=== PATIENT | male | born 1995 | race Two or more races ===

== ENCOUNTER → 2017-09-08 | Outpatient (CLI) | payer OTHER | LOC: BMCIMAGING 16:40 | PROVIDERS: ATTEND Family Medicine | DX: R05 Cough (principal); R06.02 Shortness of breath ==

== ENCOUNTER → 2018-03-28 | Outpatient (CLI) | payer OTHER | LOC: BMCIMAGING 16:29 | PROVIDERS: ATTEND Emergency Medicine | DX: J98.4 Other disorders of lung (principal); F17.200 Nicotine dependence, unspecified, uncomplicated ==